=== PATIENT | female | born 1985 | race African-American/Black ===

== ENCOUNTER 2016-06-19 10:38 | Emergency (ER) | payer OTHER ==
[2016-06-19 10:29] LABS: INFLUENZA A NEG (NEG); INFLUENZA B NEG (NEG)
== END 2016-06-19 10:47 | disposition home or self-care (01) ==
LOC: CFTX 10:38
PROVIDERS: Physician Assistant Medical
DX: J06.9 Acute upper respiratory infection, unspecified (principal); F17.210 Nicotine dependence, cigarettes, uncomplicated
CPT/HCPCS: 87651; 87804; 99282